=== PATIENT | female | born 1970 | race Caucasian/White ===

== ENCOUNTER → 2017-01-03 | Outpatient (CLI) | payer BC | LOC: BMCIMAGING 13:49 | PROVIDERS: ATTEND Internal Medicine | DX: J45.909 Unspecified asthma, uncomplicated (principal); I51.7 Cardiomegaly ==

== ENCOUNTER → 2017-04-26 | Outpatient (CLI) | payer BC | LOC: BMCIMAGING 13:43 | PROVIDERS: ATTEND Allergy & Immunology Allergy | DX: R05 Cough (principal); J98.59 Other diseases of mediastinum, not elsewhere classified ==

== ENCOUNTER → 2017-04-26 | Outpatient (CLI) | payer BC ==
[~2017-04-26] MED LIST: IOPAMIDOL (ISOVUE 370) 100 ML BTL IV ONE
== END ==
LOC: FIMAGING 17:47
PROVIDERS: ATTEND Nurse Practitioner Family
DX: I28.8 Other diseases of pulmonary vessels (principal); I51.7 Cardiomegaly; R91.8 Other nonspecific abnormal finding of lung field; Z87.09 Personal history of other diseases of the respiratory system
CPT/HCPCS: Q9967

== ENCOUNTER 2017-05-28 08:31 | Day surgery (SDC) | payer BC ==
[2017-05-28] MEDS ORDERED: FAMOTIDINE 20 MG TAB PO ONE (08:43)
[2017-05-28] MEDS ORDERED: TEMAZEPAM 15 MG CAP PO PRN (08:43)
[2017-05-28] MEDS ORDERED: ASPIRIN EC 325 MG TAB PO ONE (08:43)
[2017-05-28] MEDS ORDERED: NS 1,000 ML IV SCH (08:43)
[2017-05-28] MEDS ORDERED: DIAZEPAM 5 MG TAB PO ONE (08:43)
[2017-05-28] MEDS ORDERED: ACETAMINOPHEN 325 MG TAB PO PRN (08:43)
[2017-05-28] MEDS ORDERED: NITROGLYCERIN 0.4 MG BTL SL PRN (08:43)
[2017-05-28] MEDS ORDERED: diphenhydrAMINE 25 MG CAP PO ONE (08:43)
--- NOTE | 2017-05-28 09:08 | CPEKG ---
Heart Rate: 110 RR Interval: 545 P-R Interval: 176 QRSD Interval: 88 QT Interval: 336 QTC Interval: 455 P [place]: 51 QRS [place]: 114 T Wave [place]: -12 EKG Severity - ABNORMAL ECG - EKG Impression: SINUS TACHYCARDIA EKG Impression: ALISON, CONSIDER BIATRIAL ABNORMALITIES EKG Impression: LEFT POSTERIOR FASCICULAR BLOCK EKG Impression: BORDERLINE T ABNORMALITIES, INFERIOR LEADS Electronically Signed By: Ronald Salazar 28-May-2017 09:52:29
[2017-05-28 09:29] LABS: PLATELET COUNT 289 10^3/uL (150-400)
[2017-05-28 09:37] LABS: INR 1.18 (0.83-1.16); PROTIME(PATIENT) 15.2 SEC (12.0-15.0)
[2017-05-28] MEDS ORDERED: IOPAMIDOL (ISOVUE-370) 150 ML BTL IV ONE (10:02)
[2017-05-28] MEDS ORDERED: VERAPAMIL 5 MG/2 ML VIAL ONE (10:02)
[2017-05-28] MEDS ORDERED: HEPARIN 10,000 UNIT/10 ML MDV (1,000 UNIT/ML) ONE (10:02)
[2017-05-28] MEDS ORDERED: MIDAZOLAM 2 MG/2 ML VIAL ONE ×2 (10:02→10:38)
[2017-05-28] MEDS ORDERED: fentaNYL 100 MCG/2 ML INJ ONE ×2 (10:02→10:38)
[2017-05-28] MEDS ORDERED: LIDOCAINE 1% 300 MG/30 ML SDV ONE (10:02)
--- NOTE | 2017-05-28 10:12 | PDPROPOC ---
Sedation Plan of Care Sedation Plan of Care: vital signs stable, mental status noted, patient educated of risks, benefits, alternatives, patient can tolerate sedation ASA Classification: ASA 2 Planned drugs: fentanyl, midazolam Mallampati Score: Class 2 Mallampati Reference Image: Patient passed 3-3-2 rule?: Yes
--- NOTE | 2017-05-28 10:13 | PDHPUP ---
History & Physical Update H&P update statement: This history and physical update is based on an assessment of the patient which was completed after admission or registration (within 24 hours), but prior to the surgery/procedure. H&P update: H&P reviewed & patient examined, no change in patient's condition since H&P completed H&P changes: Will plan for SHONNA to exclude structural anaomaly to explain PA aneursym as well as bubble study to ealuate for shunt.
[2017-05-28] MEDS ORDERED: ADENOSINE 90 MG/30 ML VIAL IV ONE (11:20)
--- NOTE | 2017-05-28 12:04 | PDDXCAT ---
Diagnostic Cath Note - . Date: 05/28/17 Laboratory Apparatus Glass Grinder: Ever Indication: other (Pulmonary hypertension) - Procedure Access: right wrist Procedure: left heart catheterization, left ventriculogram, right heart catheterization - Materials Left Heart Cath size: 5F Left Heart Cath materials: pigtail, other (Siteseer 4\) - Findings-Left Heart Catheterization LM: Normal LAD: Normal LCX: Normal RCA: Normal EDP: 18 mm of mercury LVEF: 60 Wall motion: Normal - Findings-Right Heart Catheterization RA: 18 mm of mercury RV: 84/15 mm of mercury PA: 86/42 with a mean of 59 mm of mercury PAOP: 18 mm of mercury AO: 120/ 79 mm of mercury CO: Baseline 6.78 liters/minute Assessment: Primary pulmonary hypertension Plan: Vaso dilator trial Intervention: Procedure: Vaso dilator trial. Patient was administered 50 micrograms/kilos per minute IV adenosine over 2 minutes intervals with increasing dose to 250 micrograms/kilos per minute. Pulmonary pressure was continuously observed with measurement of cardiac output at baseline and peak hyperemia. New lines baseline pulmonary artery pressure was 86/42 with a mean of 59 mm of mercury. The end of vaso dilator trial there was no change in pulmonary pressure with the final reading of 86/39 with a mean of 57 mm of mercury. There is no change in systemic pressure with the final aortic pressure of 112/63. Cardiac output increased from 6.78 liters/minute to 11.78 liters/minute. Evaluation for intracardiac shunting revealed no significant step-up with a mixed venous oxygen saturation of 78 percent. Conclusions: Primary pulmonary hypertension with no vaso reactive component. No significant [id number] shunt. Patient Problems: Problems Problem Status Onset Pulmonary hypertension Acute
--- NOTE | 2017-05-28 16:50 | ECHO ---
[email or web address] [place] [id number] Main: [phone] Fax: Transesophageal Echocardiography Name: MONIQUE HASSAN MR#: [id number] Study Date: 05/28/2017 Study Time: 10:30 AM Date of : 1970 Age: 47 year(s) Height: ( ) Weight: ( ) BSA: Gender: Female Examination: SHONNA Indication: Pre Cath Image Quality: Contrast: Requested by: Xavier Curtis Heart Rate: Rhythm: BP: / Procedure Staff Production Welder: Jayant Walker RDCS Reading Physician: Xavier Curtis MD Requesting Provider: SHONNA Exam Details Conclusions: Inter atrial bowing of the septum with Doppler suggestion of a patent foramina ovale. Preserved LV systolic function. Dilated right atrium and right ventricle. Decreased RV systolic function Measurements: Chambers Valvular Assessment AV/MV Valvular Assessment TV/PV Normal Normal Normal Name Value Range Name Value Range Name Value Range Additional Measurements: Findings: Left Ventricle: Normal global systolic LV function. Right Ventricle: Moderately dilated right ventricle. Left Atrium: An agitated saline study was performed and was positive for intracardiac shunting. Right Atrium: The right atrium is moderately dilated. l1n Patient: MONIQUE HASSAN Study Date: 05/28/2017 Page 1 of 2 10:30 AM (No Signature Object) Patient: MONIQUE HASSAN Study Date: 05/28/2017 Page 2 of 2 10:30 AM [id number]
== END 2017-05-28 17:00 | disposition home or self-care (01) ==
LOC: FCATH 08:31
PROVIDERS: ATTEND Internal Medicine Interventional Cardiology
PROC: 4A023N8 Measurement of Cardiac Sampling and Pressure, Bilateral, Percutaneous Approach (ICD-10-PCS; principal; 2017-05-28)
PROC: B2151ZZ Fluoroscopy of Left Heart using Low Osmolar Contrast (ICD-10-PCS; principal; 2017-05-28)
PROC: 3E033KZ Introduction of Other Diagnostic Substance into Peripheral Vein, Percutaneous Approach (ICD-10-PCS; principal; 2017-05-28)
DX: I27.20 Pulmonary hypertension, unspecified (principal); I50.9 Heart failure, unspecified; E78.5 Hyperlipidemia, unspecified; I28.1 Aneurysm of pulmonary artery; E66.01 Morbid (severe) obesity due to excess calories; J45.909 Unspecified asthma, uncomplicated; G47.33 Obstructive sleep apnea (adult) (pediatric)
CPT/HCPCS: J0153; J1644; J2250; J3010; Q9967

== ENCOUNTER 2017-06-01 17:39 | Inpatient (IN) | payer BC ==
--- NOTE | 2017-06-01 18:40 | EDPHY ---
HPI/HX/ROS/PE/MDM Narrative: CHIEF COMPLAINT: Right arm pain, occluded right radial artery on ultrasound today HPI: The patient is a 47 y/o female with CHF and pulmonary hypertension who recent underwent a cardiac catheterization for evaluation of intracardiac shunting and subsequently developed right arm pain and swelling. She had an ultrasound of her arm today that showed extensive thrombus of her right radial artery and she was referred to the ED. She denies other symptoms including chest pain, dyspnea, fever. REVIEW OF SYSTEMS: Aside from elements discussed in the HPI, a comprehensive 10-point review of systems was reviewed and is negative. 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 . Employed. Prior medical records reviewed including [facility] progress not 05/14/17, procedure note 05/28/17, and US report 06/01/17. PHYSICAL EXAM: General:Patient is alert, in no acute distress. Obese. ENT:Eyes are normal to inspection. ENT inspection normal. Neck: Normal inspection. Full range of motion. Respiratory:No respiratory distress. Breath sounds normal bilaterally. Cardiovascular: Regular rate and rhythm. Palpable right radial pulse. Normal cap refill. Abdomen:The abdomen is nontender to palpation. There are no peritoneal signs. Back: Normal to inspection. No tenderness to palpation. Skin: Normal color. No rash. Warm and dry. Extremities: Right arm shows mild swelling of radial puncture site and mid- forearm with tenderness. Otherwise normal appearance. Full range of motion. Neuro: Oriented x3. Normal motor function. Normal sensory function. ED Course: This is a 47 y/o female who presents with extensive right radial artery thrombus secondary to cardiac catheterization a few days ago. She has right arm swelling and tenderness with a palpable radial pulse and normal capillary refill on exam. Plan for admission and consult with cardiology. IV established and labs drawn. 1844: Consulted with Dr. Lane, cardiology. He recommends starting on Heparin drip, which I have ordered. Spoke with hospitalist service. Dr. Zaman accepts admission. - Data Points Imaging Results: Imaging Impressions Extremity Venous Study 06/01/17 00:00 Impression: There is a short segment of nonocclusive thrombus involving the cephalic vein in the right antecubital fossa. Otherwise, no evidence of vein thrombosis in the right arm. A preliminary report was called to [facility]. Also, the Emergency Department was notified of the findings. Pseudoaneurysm Repair US 06/01/17 16:00 Impression: Extensive thrombosis of the right radial artery. A report was called to the answering service for [facility]. Instructions were given to send the patient to the emergency Department. The emergency department was notified of the findings. Imaging: Discussed imaging studies w/ call worker Radiologist General Time Seen by Provider: 06/01/17 18:29 Initial Vital Signs: Initial Vital Signs Temperature (C) 36.5 C 06/01/17 17:51 Heart Rate 116 H 06/01/17 17:51 Respiratory Rate 17 06/01/17 17:51 Blood Pressure 152/102 H 06/01/17 17:51 O2 Sat (%) 90 L 06/01/17 17:51 O2 Delivery Mode Nasal Cannula O2 (L/minute) 2 Allergies/Adverse Reactions: hydrocodone Allergy (Intermediate, Verified 05/23/17 14:51) Itching Home Medications: Medication Instructions Recorded Albuterol [Proventil Inhaler HFA 2 puffs IH Q4 PRN 05/23/17 (*)] Albuterol [Proventil Neb] 3 ml IH QID PRN 05/23/17 Aspirin [Aspirin 325 mg (*)] 325 mg PO DAILY 05/23/17 Budesonide/Formoterol 160/4.5 2 puffs IH BID 05/23/17 [Symbicort 160-4.5 Mcg Inh (*)] Rizatriptan Benzoate [Maxalt] 10 mg PO PRN PRN 05/23/17 Spironolactone [Aldactone 25 MG 25 mg PO DAILY 05/23/17 (*)] Torsemide [Demadex] 20 mg PO DAILY@10 05/23/17 Departure - Departure Disposition: [facility] Acute Clinical Impression: Right radial artery thrombus Condition: Fair Report Scribed for: Holland Mcguire Report Scribed by: Elisa Bella Date of Report: 06/01/17 Time of Report: 18:40 Physician Review and Approval Statement: Portions of this note were transcribed by an ED scribe. I personally performed the history, physical exam, and medical decision making; and confirm the accuracy of the information in the transcribed note.
[2017-06-01] MEDS ORDERED: HEPARIN/DEXTROSE 500 ML IV ONE (18:58)
[2017-06-01] MEDS ORDERED: HEPARIN 10,000 UNIT/10 ML MDV (1,000 UNIT/ML) IVP ONE (18:58)
[2017-06-01 19:07] LABS: PLATELET COUNT 360 10^3/uL (150-400)
[2017-06-01 19:48] LABS: INR 1.16 (0.83-1.16)
[2017-06-01] MEDS ORDERED: HEPARIN 10,000 UNIT/10 ML MDV (1,000 UNIT/ML) IVP PRN (21:00)
[2017-06-01] MEDS ORDERED: traZODone 100 MG TAB PO PRN (22:39)
[2017-06-01] MEDS ORDERED: ACETAMINOPHEN 325 MG TAB PO PRN (22:40)
[2017-06-01] MEDS ORDERED: ONDANSETRON 4 MG/2 ML VIAL IVP PRN (22:40)
[2017-06-01] MEDS ORDERED: ONDANSETRON DISINTEGRATING 4 MG TAB PO PRN (22:40)
--- NOTE | 2017-06-02 00:25 | PDGENHP ---
History and Physical - Chief Complaint R arm pain - History of Present Illness 47 yo F w/ obesity, pHTN, and asthma presents with R wrist pain. Patient had L/ R cardiac cath 05/28/17 for evaluation of ongoing dyspnea and newly diagnosed pulmonary hypertension. Since the procedure she has developed R wrist and forearm pain. US performed today after cardiology visit demonstrated extensive R radial thrombosis. She was sent to ED for evaluation where cardiology recommended heparin gtt for therapy. She is doing well at the time of my evaluation only complaining of mild R forearm pain. History Information - Allergies/Home Medication List Allergies/Adverse Reactions: hydrocodone Allergy (Intermediate, Verified 05/23/17 14:51) Itching Home Medications: Albuterol [Proventil Inhaler HFA (*)] 2 puffs IH Q4 PRN 05/23/17 [Last Taken 15:00] Albuterol [Proventil Neb] 3 ml IH QID PRN 05/23/17 [Last Taken 05/20/17] Aspirin [Aspirin 325 mg (*)] 325 mg PO DAILY 05/23/17 [Last Taken 05/27/17 08:00 ] Budesonide/Formoterol 160/4.5 [Symbicort 160-4.5 Mcg Inh (*)] 2 puffs IH BID [Last Taken 06/01/17 08:00] Rizatriptan Benzoate [Maxalt] 10 mg PO PRN PRN 05/23/17 [Last Taken Unknown] Spironolactone [Aldactone 25 MG (*)] 25 mg PO DAILY 05/23/17 [Last Taken ] Torsemide [Demadex] 20 mg PO DAILY@10 05/23/17 [Last Taken 06/01/17] I have personally reviewed and updated: family history, medical history - Past Medical History Additional medical history: Pulmonary hypertension. Obesity. Migraines. Asthma. Protein C deficiency - Family History Additional family history: Patient is adopted but does know of Protein C def. that runs in the family - Social History Smoking Status: Never smoked Review of Systems Review of Systems: ROS: 10pt was reviewed & negative except for what was stated in HPI & below Physical Exam Physical Exam: Temp Pulse Resp BP Pulse Ox 36.8 C 111 H 18 138/90 H 95 06/01/17 23:50 06/01/17 23:50 06/01/17 23:50 06/01/17 23:50 06/01/17 23:50 O2 (L/minute) 2 Constitutional: no apparent distress, obese Eyes: PERRL, EOMI Ears, Nose, Mouth, Throat: moist mucous membranes, no oral mucosal ulcers Cardiovascular: regular rate and rhythym, systolic murmur, other (R radial pulse weak but palpable, normal capillary refill) Respiratory: no respiratory distress, clear to auscultation Gastrointestinal: normoactive bowel sounds, soft, non-tender abdomen Skin: warm, normal color Musculoskeletal: full muscle strength, no muscle tenderness Neurologic: AAOx3, CN II-XII Intact Psychiatric: interacting appropriately, not anxious Lab Data & Imaging Review 06/01/17 18:45 06/01/17 18:45 WBC 14.46 10^3/uL (3.80-9.50) H 06/01/17 18:45 RBC 5.34 10^6/uL (4.18-5.33) H 06/01/17 18:45 Hgb 16.0 g/dL (12.6-16.3) 06/01/17 18:45 Hct 48.1 % (38.0-47.0) H 06/01/17 18:45 MCV 90.1 fL (81.5-99.8) 06/01/17 18:45 MCH 30.0 pg (27.9-34.1) 06/01/17 18:45 MCHC 33.3 g/dL (32.4-36.7) 06/01/17 18:45 RDW 14.2 % (11.5-15.2) 06/01/17 18:45 Plt Count 360 10^3/uL (150-400) 06/01/17 18:45 MPV 9.8 fL (8.7-11.7) 06/01/17 18:45 Neut % (Auto) 73.4 % (39.3-74.2) 06/01/17 18:45 Lymph % (Auto) 18.9 % (15.0-45.0) 06/01/17 18:45 Gilliam % (Auto) 5.5 % (4.5-13.0) 06/01/17 18:45 Eos % (Auto) 1.2 % (0.6-7.6) 06/01/17 18:45 Baso % (Auto) 0.4 % (0.3-1.7) 06/01/17 18:45 Nucleat RBC Rel Count 0.0 % (0.0-0.2) 06/01/17 18:45 Absolute Neuts (auto) 10.62 10^3/uL (1.70-6.50) H 06/01/17 18:45 Absolute Lymphs (auto) 2.73 10^3/uL (1.00-3.00) 06/01/17 18:45 Absolute Monos (auto) 0.80 10^3/uL (0.30-0.80) 06/01/17 18:45 Absolute Eos (auto) 0.17 10^3/uL (0.03-0.40) 06/01/17 18:45 Absolute Basos (auto) 0.06 10^3/uL (0.02-0.10) 06/01/17 18:45 Absolute Nucleated RBC 0.00 10^3/uL (0-0.01) 06/01/17 18:45 Immature Gran % 0.6 % (0.0-1.1) 06/01/17 18:45 Immature Gran # 0.08 10^3/uL (0.00-0.10) 06/01/17 18:45 PT 15.0 SEC (12.0-15.0) 06/01/17 18:45 INR 1.16 (0.83-1.16) 06/01/17 18:45 APTT 28.8 SEC (23.0-38.0) 06/01/17 18:45 Sodium 143 mEq/L (135-145) 06/01/17 18:45 Potassium 4.0 mEq/L (3.5-5.2) 06/01/17 18:45 Chloride 106 mEq/L (97-110) 06/01/17 18:45 Carbon Dioxide 25 mEq/l (22-31) 06/01/17 18:45 Anion Gap 12 mEq/L (8-16) 06/01/17 18:45 BUN 12 mg/dL (7-23) 06/01/17 18:45 Creatinine 0.9 mg/dL (0.6-1.0) 06/01/17 18:45 Estimated GFR > 60 06/01/17 18:45 Glucose 100 mg/dL (70-100) 06/01/17 18:45 Calcium 9.8 mg/dL (8.5-10.4) 06/01/17 18:45 Imaging Review: Imaging Impressions Extremity Venous Study 06/01/17 00:00 Impression: There is a short segment of nonocclusive thrombus involving the cephalic vein in the right antecubital fossa. Otherwise, no evidence of vein thrombosis in the right arm. A preliminary report was called to [facility]. Also, the Emergency Department was notified of the findings. Pseudoaneurysm Repair US 06/01/17 16:00 Impression: Extensive thrombosis of the right radial artery. A report was called to the answering service for [facility]. Instructions were given to send the patient to the emergency Department. The emergency department was notified of the findings. Assessment & Plan Assessment: 47 yo F w/ obesity, pHTN, asthma, and protein C def presents w/ R radial thrombosis after cath of 05/28/17. Plan: 1. R radial thrombosis - I suspect this is iatrogenic from recent heart cath on 05/28/17. She does have Protein C def., which may be contributing, but it is unusual for this to lead to arterial thrombosis. - Cardiology consulted, will continue heparin gtt per their recommendation 2. pHTN - With aneurysmal PA of 4.6 cm. This is most likely Class III noting obesity, ANSHU/OHS, and asthma with normal coronaries and no significant valvular disease on recent studies. R hear orozco revealed RA 18, PA 86/42 (59), PCWP 18, and CO 6.8 L/min with no stop on sampling of R heart O2 sats. - Continue spironolactone and torsemide 3. Asthma - On Symbicort and albuterol PRN as outpatient, no e/o acute exacerbation. 4. Morbid obesity - Complicated by ANSHU/OHS, BMI 54. 5. Migraines - Triptan PRN, would avoid for now in setting of arterial complications. 6. Protein C def - Has no prior history of VTE; not on anticoagulation chronically. Diet - Regular Code - Full Ppx - Heparin gtt Dispo - Admit to PCU under observation status
[2017-06-02 04:40] LABS: PLATELET COUNT 301 10^3/uL (150-400)
[2017-06-02] MEDS: HEPARIN/DEXTROSE 500 ML IV SCH ×2 (08:16→23:13)
--- NOTE | 2017-06-02 09:15 | HOSPPROG ---
Hospitalist Progress Note Assessment/Plan: * Radial artery thrombosis - iatrogenic from heart cath 05/28 -IV heparin gtt -d/w Dr. Shelby - vascular surgery and IR consult - will d/w Ross and Juarez * Protein C deficiency - no chronic anticoagulation as no previous clot -hypercoagulable state - consider lifelong anticoag, josi given arterial thrombosis -f/u hematology as outpatient * Pulm HTN -likely due to obesity/ANSHU -has sleep study scheduled outpatient this -continue torsemide, spironolactone * Morbid obesity BMI 54 * Asthma -Symbicort Subjective: Arm about the same, was blue yesterday, now denies weakness or numbness Objective: Vital Signs Temp Pulse Resp BP Pulse Ox 36.3 C 105 H 16 143/95 H 94 06/02/17 08:00 06/02/17 08:00 06/02/17 08:00 06/02/17 08:00 06/02/17 08:00 Laboratory Results 06/02/17 03:50 06/02/17 03:50 06/01/17 06/02/17 06/03/17 05:59 05:59 05:59 Intake Total 300 Output Total 250 Balance 300 -250 PT 15.0 SEC (12.0-15.0) 06/01/17 18:45 INR 1.16 (0.83-1.16) 06/01/17 18:45 US - clot from breast down to mid arm - Physical Exam Constitutional: no apparent distress, appears nourished, not in pain Cardiovascular: regular rate and rhythym, no murmur, rub, or gallop Respiratory: no respiratory distress, no rales or rhonchi, clear to auscultation Gastrointestinal: normoactive bowel sounds, soft, non-tender abdomen, no palpable masses Skin: erythema, induration, other (RUE tender, small patch of erythema over artery, doppler weak pulse, good perfusion and strength) Musculoskeletal: full muscle strength, muscular tenderness, No joint effusion, No joint tenderness Neurologic: AAOx3, sensation intact bilaterally Psychiatric: interacting appropriately, not anxious, not encephalopathic, thought process linear ICD10 Worksheet Patient Problems: Problems Problem Status Onset Right radial artery thrombus Acute Pulmonary hypertension Acute
[2017-06-02] MEDS ORDERED: ALBUTEROL 3 ML DEYVIAL IH PRN (09:16)
[2017-06-02] MEDS ORDERED: NS 1,000 ML IV SCH (09:30)
--- NOTE | 2017-06-02 09:34 | SOAPPROG ---
[facility] Progress Note Assessment/Plan: Assessment:1.right radial clot..probably secondary to cath ...pt feeling ok..will have consults with IR and vascular surgery to further delineate therapeutic options. pt in agreement with plans Plan:1. as ordered 06/02/17 09:39 Subjective: pt is doing better this AM. no sob or cp. pt hand is strong without pain and palpable radial pulse. pt has extensive clot in right arm arterial supply. d/w dr jackson and will request IR consult. Objective: Vital Signs Temp Pulse Resp BP Pulse Ox 36.3 C 105 H 16 143/95 H 94 06/02/17 08:00 06/02/17 08:00 06/02/17 08:00 06/02/17 08:00 06/02/17 08:00 Laboratory Results 06/02/17 03:50 06/02/17 03:50 06/01/17 06/02/17 06/03/17 05:59 05:59 05:59 Intake Total 300 Output Total 250 Balance 300 -250 PT 15.0 SEC (12.0-15.0) 06/01/17 18:45 INR 1.16 (0.83-1.16) 06/01/17 18:45 Physical Exam - Physical Exam Respiratory: lungs clear Cardiac/Chest: regular rate, rhythm, No JVD (no palpable right radial pulse ) ICD10 Worksheet Patient Problems: Problems Problem Status Onset Right radial artery thrombus Acute Pulmonary hypertension Acute
[2017-06-02] MEDS ORDERED: IOPAMIDOL (ISOVUE 370) 100 ML BTL IV ONE (09:49)
--- NOTE | 2017-06-02 10:06 | PDCONSULT ---
Blood Tester Fowl Note: 47 y/o female s/p cardiac cath on Sunday05/28/17 (right radial approach). She had some feelings of tightness in the right forearm starting Sunday and went to work Sunday. The pain became worse and she came in for assessment on Thursday 06/01. An ultrasound of the right upper extremity revealed clot in the radial artery. She was admitted to [facility] and started on Heparin. Surgical consult was requested this morning by Dr. Grace. PMH: Protein C deficiency Pulmonary HTN all: hydrocodone non-smoker PE: T 36.3 P 105 R 16 O2sat 94% 2lpm Pleasant somwhat overweight female in NAD/just finished breakfast RUE: radial pulse absent ulnar pulse +2 right hand is warm with good capillary refill forearm is tender, she is tender over the ACF with a palpable brachial pulse Imp: subacute right radial artery occlusion/clinically patent brachial + ulnar artery/no evidence of limb threat s/p cardiac cath via right radial artery approach protein C deficiency without prior vascular occlusive events Rec: CTA ext/IR consult for possible thrombolytic infusion Addendum: CTA reviewed with Dr. Byrne and discussed with Dr. Pizarro. CTA confirms clinical findings. Brachial and ulnar arteries are patent. radial artery is occleded at the level of the bifurcation of the brachial artery near the elbow. The etiology of the thrombosis is most likely mechanical/dissection with prograde thrombosis to the bifurcation. The chance of restoring flow to the radial artery with IR or surgical thrombectomy is low. Dr. Pizarro did not recommend thrombolytic therapy and I did not recommend catheter thrombectomy. I discussed with Dr. Frank Smalls and he recommended therapeutic Heparin and Coumadin in a patient with Protein C deficiency. The findings and recommendations were discussed with the patient. Laura Hawkins MD, FACS
--- NOTE | 2017-06-02 10:21 | PDMN ---
Medical Necessity Medical necessity: C/M review: Patient meets INPT criteria under [facility] Vascular disease GRG (Embolism and thrombosis of the upper extremities): Acute and persistent right radial artery extensive thrombosis seen on US 06/01/2017 ( iatrogenic from heart catheterization 05/28/2017) requiring planned IR consult, Vascular surgery consult, ongoing IV Heparin infusion, cardiac monitoring, comorbid protein C deficiency, hypercoaguable state, pulmonary hypertension, morbid obesity - BMI 54, obstructive sleep apnea, asthma. MD anticipates > 2 MN LOS for ongoing med nec for eval and TX of above.
[2017-06-02] MEDS: TORSEMIDE 20 MG TAB PO SCH (12:03)
[2017-06-02] MEDS: HYDROmorphONE/DILAUDID 2 MG/ML INJ IVP PRN ×2 (12:04→17:50)
[2017-06-02] MEDS ORDERED: SPIRONOLACTONE 25 MG TAB ONE (12:08)
--- NOTE | 2017-06-02 14:40 | ASMTCMCOM ---
CM Note CM Note Notes: Pt has been admitted with a radial artery clot 05/04 a heart cath done on 05/28. She is currently on heparin and no surgery is planned. She has a hx of pulmonary HTN and asthma. She has a son Dimitrios. Anticipate pt will d/c with no CM needs but will continue to follow for any change in d/c needs. Date Signed: 06/02/2017 02:40 PM Electronically Signed By:CARO Nayak
[2017-06-02] MEDS: WARFARIN SODIUM 5 MG TAB PO SCH (15:46)
[2017-06-02] MEDS ORDERED: ADENOSINE 6 MG/2 ML VIAL ONE (19:08)
[2017-06-02] MEDS: BUDESONIDE/FORMOTEROL 160/4.5 60 PUFFS/MDI IH SCH (21:18)
[2017-06-03] MEDS: HYDROmorphONE/DILAUDID 2 MG/ML INJ IVP PRN ×2 (02:22→08:24)
[2017-06-03 04:46] LABS: PLATELET COUNT 277 10^3/uL (150-400)
[2017-06-03 05:24] LABS: INR 1.19 (0.83-1.16); PROTIME(PATIENT) 15.3 SEC (12.0-15.0)
[2017-06-03 07:08] LABS: CREATINE KINASE 34 IU/L (0-156)
[2017-06-03] MEDS ORDERED: PROTOCOL POTASSIUM 1 DOSE MISC PRN (09:30)
[2017-06-03] MEDS ORDERED: traMADol 50 MG TAB PO PRN (09:39)
--- NOTE | 2017-06-03 09:44 | HOSPPROG ---
Hospitalist Progress Note Assessment/Plan: * Radial artery thrombosis - iatrogenic from heart cath 05/28 -brachial and ulnar arteries patent, good perfusion of hand -IV heparin gtt - change to SubQ Lovenox -no intervention with surgery or IR indicated -start warfarin - goal INR 2-3 * Protein C deficiency - no chronic anticoagulation as no previous clot -hypercoagulable state - consider lifelong anticoag, josi given arterial thrombosis -f/u hematology as outpatient * Pulm HTN -likely due to obesity/ANSHU -has sleep study scheduled outpatient this -continue torsemide, spironolactone * Morbid obesity BMI 54 * Asthma -Symbicort Subjective: Arm pain better, moved to upper arm. Objective: Vital Signs Temp Pulse Resp BP Pulse Ox 36.9 C 99 19 156/103 H 90 L 06/03/17 07:17 06/03/17 07:17 06/03/17 07:17 06/03/17 07:17 06/03/17 07:17 Laboratory Results 06/03/17 04:26 06/03/17 04:26 06/02/17 06/03/17 06/04/17 05:59 05:59 05:59 Intake Total 1750 Output Total 1400 Balance 350 PT 15.3 SEC (12.0-15.0) H 06/03/17 04:26 INR 1.19 (0.83-1.16) H 06/03/17 04:26 case d/w Dr. Pizarro - no benefit from intervention in IR CTA arm - radial artery thrombosed, other arteries patent Using IV dilaudid for pain - Physical Exam Constitutional: no apparent distress, appears nourished, not in pain Cardiovascular: regular rate and rhythym, no murmur, rub, or gallop Respiratory: no respiratory distress, no rales or rhonchi, clear to auscultation Gastrointestinal: normoactive bowel sounds, soft, non-tender abdomen, no palpable masses Skin: no rashes or abrasions, no fluctuance, no induration Neurologic: AAOx3, sensation intact bilaterally Psychiatric: interacting appropriately, not anxious, not encephalopathic, thought process linear ICD10 Worksheet Patient Problems: Problems Problem Status Onset Right radial artery thrombus Acute Pulmonary hypertension Acute
--- NOTE | 2017-06-03 10:18 | SOAPPROG ---
SOAP Progress Note Assessment/Plan: Assessment:1.right radial clot..probably secondary to cath ...pt feeling better...pt doing well on current therapy and treatment as ordered Plan:1. as ordered 06/02/17 09:39 06/03/17 10:17 Subjective: no cv c/o ..right hand feels better..discussed findings on tests Objective: Vital Signs Temp Pulse Resp BP Pulse Ox 36.9 C 99 19 156/103 H 90 L 06/03/17 07:17 06/03/17 07:17 06/03/17 07:17 06/03/17 07:17 06/03/17 07:17 Laboratory Results 06/03/17 04:26 06/03/17 04:26 06/02/17 06/03/17 06/04/17 05:59 05:59 05:59 Intake Total 1750 Output Total 1400 Balance 350 PT 15.3 SEC (12.0-15.0) H 06/03/17 04:26 INR 1.19 (0.83-1.16) H 06/03/17 04:26 Physical Exam - Physical Exam Cardiac/Chest: regular rate, rhythm (right ahnd ..no radial pulse..? ulnar pulse palp noted) ICD10 Worksheet Patient Problems: Problems Problem Status Onset Right radial artery thrombus Acute Pulmonary hypertension Acute
[2017-06-03] MEDS: SPIRONOLACTONE 25 MG TAB PO SCH (10:22)
[2017-06-03] MEDS: BUDESONIDE/FORMOTEROL 160/4.5 60 PUFFS/MDI IH SCH ×2 (10:22→19:59)
[2017-06-03] MEDS: TORSEMIDE 20 MG TAB PO SCH (10:22)
[2017-06-03] MEDS: ENOXAPARIN 150 MG/ML SYR SC SCH ×2 (12:18→20:30)
[2017-06-03] MEDS: KETOROLAC 30 MG/1 ML SDV IVP PRN ×2 (12:19→19:10)
--- NOTE | 2017-06-03 14:34 | ASMTCMCOM ---
CM Note CM Note Notes: [facility] contacted about need for Lovenox inj 2x/day. [facility] does contract w/[employer] they could go out 2x/day for a limited time (3days) but patient wouldn't get the inj 12 hrs apart. Maybe 9am and again at 6pm? Date Signed: 06/03/2017 02:34 PM Electronically Signed By:Milka Friend LCSW
[2017-06-03] MEDS: WARFARIN SODIUM 5 MG TAB PO SCH (16:18)
[2017-06-03] MEDS ORDERED: POTASSIUM CL 10 MEQ TAB PO ONE (16:22)
[2017-06-03] MEDS ORDERED: POTASSIUM CL 10 MEQ TAB ONE (16:26)
[2017-06-04] MEDS: KETOROLAC 30 MG/1 ML SDV IVP PRN ×3 (01:11→19:52)
[2017-06-04 04:54] LABS: PLATELET COUNT 277 10^3/uL (150-400)
[2017-06-04 05:04] LABS: INR 1.22 (0.83-1.16); PROTIME(PATIENT) 15.6 SEC (12.0-15.0)
[2017-06-04] MEDS: BUDESONIDE/FORMOTEROL 160/4.5 60 PUFFS/MDI IH SCH ×2 (08:00→20:06)
--- NOTE | 2017-06-04 09:09 | CPEKG ---
Heart Rate: 96 RR Interval: 625 P-R Interval: 180 QRSD Interval: 96 QT Interval: 360 QTC Interval: 455 P [place]: 54 QRS [place]: 108 T Wave [place]: -41 EKG Severity - ABNORMAL ECG - EKG Impression: SINUS RHYTHM EKG Impression: ALISON, CONSIDER BIATRIAL ABNORMALITIES EKG Impression: PROBABLE RIGHT VENTRICULAR HYPERTROPHY EKG Impression: NONSPECIFIC T ABNORMALITIES, INFERIOR LEADS EKG Impression: RIGHT AXIS DEVIATION Electronically Signed By: Ronald Lane 04-Jun-2017 10:28:27
[2017-06-04] MEDS: SPIRONOLACTONE 25 MG TAB PO SCH (09:44)
[2017-06-04] MEDS: ENOXAPARIN 150 MG/ML SYR SC SCH ×2 (09:45→21:19)
--- NOTE | 2017-06-04 10:34 | PDCARPN ---
Cardiology Progress Note Assessment/Plan: Assessment: 1. Right radial clot..2/2 to cath ...Right arm feels better, with no pain. R ulnar/radial pulses equal. Good capillary refill of fingers. Hand warm. 2. SOB that was first noted the end of October and has progressively worsened to point now unable to walk across room w/out near gasping for breath. Today her HR is elevated in low 100's, EKG shows possible Right ventricular hypertrophy. Reported elevated Plan:R/o PE 06/04/17 10:25 06/04/17 22:49 Subjective: I get SOB with activity Reviewed/Discussed With: hospitalist, multidisciplinary team Objective: Vital Signs (8 Hrs) Temp Pulse Resp BP Pulse Ox 06/04/17 04:00 36.6 C 110 H 16 131/86 H 91 L Intake/Output (24 Hrs) 06/03/17 06/04/17 06/05/17 05:59 05:59 05:59 Intake Total 1750 200 260 Output Total 1400 800 Balance 350 -600 260 Intake: Oral (ml) 1750 200 260 Output: Urine (ml) 1400 800 Toilet 1400 800 Other: Weight 138.2 kg Intake Quantity Yes Yes Sufficient Number of Voids Toilet 1 Result Diagrams: 06/04/17 04:06 06/04/17 18:14 - Physical Exam Constitutional: no apparent distress, obese Cardiovascular: regular rate and rhythm, no murmurs Peripheral Pulses: 2+: carotid (R), carotid (L), dorsalis-pedis (R), dorsalis- pedis (L) Respiratory: clear to auscultate bilat, no crackles, no wheezes Gastrointestinal: no tenderness Skin: no rashes, warm, other (Left arm edema) Neurologic: AAOx3 Psychiatric: cooperative, interactive ICD10 Worksheet Patient Problems: Problems Problem Status Onset Right radial artery thrombus Acute Pulmonary hypertension Acute
[2017-06-04] MEDS ORDERED: IOPAMIDOL (ISOVUE 370) 100 ML BTL IV ONE (10:49)
[2017-06-04] MEDS: TORSEMIDE 20 MG TAB PO SCH (12:52)
--- NOTE | 2017-06-04 14:14 | HOSPPROG ---
Hospitalist Progress Note Assessment/Plan: * Radial artery thrombosis - iatrogenic from heart cath 05/28 -brachial and ulnar arteries patent, good perfusion of hand -SubQ Lovenox -no intervention with surgery or IR indicated -start warfarin - goal INR 2-3 * Protein C deficiency - no chronic anticoagulation as no previous clot -hypercoagulable state - consider lifelong anticoag, josi given arterial thrombosis -f/u hematology as outpatient * Pulm HTN -likely due to obesity hypoventilation/ANSHU -has sleep study scheduled outpatient this -continue torsemide, spironolactone -consult pulmonary - d/w Dr. Ivey * Morbid obesity BMI 54 * Asthma -Symbicort Subjective: No complaints. Objective: Vital Signs Temp Pulse Resp BP Pulse Ox 36.6 C 107 H 14 133/86 H 93 06/04/17 12:00 06/04/17 12:00 06/04/17 12:00 06/04/17 12:00 06/04/17 12:00 Laboratory Results 06/04/17 04:06 06/04/17 04:06 06/03/17 06/04/17 06/05/17 05:59 05:59 05:59 Intake Total 1750 200 260 Output Total 1400 800 Balance 350 -600 260 PT 15.6 SEC (12.0-15.0) H 06/04/17 04:06 INR 1.22 (0.83-1.16) H 06/04/17 04:06 CTA chest - no PE tele - sinus tachy - Physical Exam Constitutional: no apparent distress, appears nourished, not in pain Cardiovascular: regular rate and rhythym, no murmur, rub, or gallop Respiratory: no respiratory distress, no rales or rhonchi, clear to auscultation Gastrointestinal: normoactive bowel sounds, soft, non-tender abdomen, no palpable masses Skin: no rashes or abrasions, no fluctuance, no induration Neurologic: AAOx3, sensation intact bilaterally Psychiatric: interacting appropriately, not anxious, not encephalopathic, thought process linear ICD10 Worksheet Patient Problems: Problems Problem Status Onset Right radial artery thrombus Acute Pulmonary hypertension Acute
--- NOTE | 2017-06-04 14:34 | ASMTCMCOM ---
CM Note CM Note Notes: Clarification w/[facility] if needed; spoke w/Jennifer today who said that they could do SQ Lovenox q12 hrs if needed (they would do 8AM and 8PM). Met w/pt and friend, Jv, who is here from out of state visiting and helping pt until Sunday. She is comfortable learning how to give SQ injections and may be difficult for pt to be homebound as they will be looking for new apt b/c her current apt is 2nd floor w/no elevator and is very difficult to manage at this time w/her current cardiopulmonary issues. They will let us know if they decide to have some initial at home teaching w/BC but at this time do not feel they will need it. Interested in shower seat; [employer] and [employer] supply co list given. CM will follow. Date Signed: 06/04/2017 02:34 PM Electronically Signed By:Moraima Ibrahim RN
--- NOTE | 2017-06-04 15:51 | ECHO ---
[email or web address] [address] [address] Main: [phone] Fax: Transthoracic Echocardiogram Name: MONIQUE HASSAN MR#: [id number] Study Date: 06/04/2017 Study Time: 12:16 PM Date of : 1970 Age: 47 year(s) Height: 160 cm (63 in.) Weight: 137.89 kg (304 lb.) BSA: 2.31 m2 Gender: Female Examination: Limited Echo Indication: Known elevated pulm pressures/SOB Image Quality: Contrast: Requested by: Janis Vargas BP: 112 mmHg/86 mmHg Heart Rate: Rhythm: Indication: Known elevated pulm pressures/SOB Procedure Staff Midlevel Provider: Maria T Macias [facility] Reading Physician: Ronald Salazar MD Requesting Provider: Conclusions: Global hypercontractility of the left ventricle. The ejection fraction is estimated to be 70-75 %. Flattened interventricular septum consistent with right ventricular pressure and/or volume overload septum. Moderate tricuspid regurgitation is present. RVSP is 90-100mmHG.. Measurements: Chambers Valvular Assessment AV/MV Valvular Assessment TV/PV Normal Normal Normal Name Value Range Name Value Range Name Value Range LVDd (2D): 4.0 cm (3.9 cm-5.3 TR Vmax: 4.46 mm/s ( - ) cm) TR PGmax: 80 mmHg ( - ) EF Range: 70-75 % syst. PAP: 90 mmHg ( - ) Continued Measurements: Valvular Assessment TV/PV Name Value CVP (est.): 10 mmHg Findings: Left Ventricle: Global hypercontractility of the left ventricle. The ejection fraction is estimated to be 70-75 %. Right Ventricle: Flattened interventricular septum consistent with right ventricular pressure and/or volume overload septum. Tricuspid Valve: Patient: MONIUQE AHSSAN Study Date: 06/04/2017 Page 1 of 2 12:16 PM Moderate tricuspid regurgitation is present. RVSP is 90-100mmHG.. (No Signature Object) Patient: MONIQUE HASSAN Study Date: 06/04/2017 Page 2 of 2 12:16 PM [id number]
[2017-06-04] MEDS ORDERED: WARFARIN SODIUM 5 MG TAB PO ONE (16:00)
--- NOTE | 2017-06-04 19:31 | GCON ---
[f rep st] CONSULTATION PULMONARY CONSULTATION DATE OF CONSULTATION: 06/04/2017 REASON FOR CONSULTATION: Pulmonary hypertension. HISTORY: The patient is a very pleasant 47-year-old, who was admitted on 06/02 with right arm pain. She was found to have a radial artery clot. The ulnar artery was intact. This followed a right rad ial catheterization on 05/28 for a right heart catheterization. Pulmonary artery pressures were foun d to be 86. There was no response to vasodilators. She previously had a cardiac echo, which deb rated similarly elevated estimated pulmonary artery pressures and a patent foramen ovale by miguel urias. Clinically, the patient has morbid obesity. She weighs 138 kg, with a BMI of approximately 54. She has been overweight for many years. She was on Fen-Phen about 20 years ago for 6 months. No cardiac echoes were done at that time as she recalls. She has not been on oxygen until recently. She is be ing evaluated for obstructive sleep apnea and has an outpatient sleep study scheduled in 3 days. She has been increasingly dyspneic over the last several months. She has had increasing fluid retention over this time. She lives alone in her own apartment on the 2nd floor. Lately, she has had to stop 3 times going up the stairs. There is no elevator. She has had a cough going back over the last 3 months or so. She does not bring up any mucus, and the cough has been better over the last several w eeks. There is a questionable history of asthma. She is on Symbicort and albuterol. She is a never smoker. She has had a dry cough over a number of months. This has been better over the last week. She was recently started on Aldactone and torsemide. She remains on these without change during thi s hospitalization. She is feeling better. She has obviously not been doing much since she has been in the hospital; however, with oxygen in place, and with ongoing diuretic therapy, she believes that her dyspnea on exertion has significantly improved. She did walk a few stairs yesterday on room air and dropped to 82%, by report. CT angiogram recently showed no evidence of pulmonary embolic disease . She is being anticoagulated, however, secondary to her right radial thrombosis. PAST MEDICAL HISTORY: Remarkable for morbid obesity, protein-C deficiency, a history of possible ast hma, migraines, and pulmonary hypertension. She is being evaluated for sleep apnea. SOCIAL HISTORY: The patient lives alone on the 2nd floor in an apartment. 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 She is a never smoker. Significant alcohol is negative. FAMILY HISTORY: Adopted. Apparently, protein-C deficiency runs in her biologic family. REVIEW OF SYSTEMS: A 10-point review of systems is negative, except as noted above. ALLERGIES: Hydrocodone. PHYSICAL EXAMINATION: GENERAL: Reveals a very pleasant woman who is significantly obese. VITAL SIG NS: Oxygen is in place at 2 L. Saturations are 94%. Blood pressure is 120/75, heart rate 100 and r egular, with sinus rhythm noted. She is afebrile. Respiratory rate is approximately 16. She is afe brile. HEENT: Unremarkable for lymphadenopathy or thyromegaly. Oropharyngeal tissues and tongue ar e generally enlarged. The posterior oropharynx, however, can be seen. Some tonsillar remnants persi st. There is mild nasal congestion, without obvious postnasal drainage. NECK: She has a large neck . Jugular venous pressure cannot be estimated. CHEST: Clear bilaterally. Excursions are decent. Breath sounds are diminished secondary to body habitus. HEART: Tones are quite distant. P2 is incr eased. Gallops are difficult to appreciate. ABDOMEN: Quite obese. Organomegaly cannot be apprecia susan. Bowel sounds are distant but present. There is no obvious tenderness. EXTREMITIES: Remarkabl e for at least trace plus edema. NEUROLOGIC: Examination is intact. LABORATORY DATA: White blood cell count is 9800, hematocrit 44. Platelets are normal. PT and PTT o n admission were within normal limits. Chemistries are within normal limits. Thyroid is normal. ASSESSMENT: 1. Severe pulmonary hypertension, with pulmonary artery pressures documented directly to be 85. Thi s is likely secondary to obesity, hypoventilation, chronic hypoxemia and sleep apnea. I would not be surprised if oxygen saturations are markedly low at night. A sleep study is scheduled and will be d one, if possible, in 3 days. Her pulmonary hypertension is associated with a patent foramen ovale. This is likely patent secondary to these high pressures. 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 2. Hypoxemia. Please see the comments above. 3. Probable obstructive sleep apnea. Please see the comments above. 4. Morbid obesity. Weight loss would certainly be indicated. Bariatric surgery in the future could be considered. This likely has been addressed with the patient at some point in the past. I did no t discuss this with her. 5. Protein C deficiency. 6. Right arterial thrombosis, in part secondary to recent right atrial catheterization. PLAN/RECOMMENDATIONS: The patient should be kept on oxygen. Anticoagulation is indicated. She is b eing transitioned to Coumadin from b.i.d. enoxaparin. Diuretics should be continued. Her sleep stud y hopefully can be done this as an outpatient. I anticipate she will be able to be discharg ed from the hospital tomorrow or Sunday. I would get a resting arterial blood gas on her on room air. However, this would require a left radial stick. In light of her current clot in her right rad ial artery, I will not request an arterial blood gas at this point in time. None was done that I can find at the time of her left and right heart catheterization. I would like to see her ambulated on oxygen, including stairs prior to her discharge home. It would be reasonable to help her secure an a partment on the ground floor in the near future. Her apartment managers are being somewhat resistant to this without financial penalty. Contacting the managers or the apartment complex owners may be o f benefit in this regard. She does have an appointment with Jama Fishman MD, in our office, I believe on June 11. He will provi de ongoing followup. Drugs for pulmonary hypertension can be considered on followup, although this p roblem is likely chronic and secondary to the factors as outlined above. All of the above was discussed with the patient and her friend. /[id number]/MODL
[2017-06-05 05:33] LABS: INR 1.28 (0.83-1.16); PROTIME(PATIENT) 16.2 SEC (12.0-15.0)
[2017-06-05] MEDS: oxyCODONE IR 5 MG TAB PO PRN ×2 (08:06→09:35)
[2017-06-05] MEDS: SPIRONOLACTONE 25 MG TAB PO SCH (08:07)
[2017-06-05] MEDS: ENOXAPARIN 150 MG/ML SYR SC SCH (08:07)
[2017-06-05] MEDS: BUDESONIDE/FORMOTEROL 160/4.5 60 PUFFS/MDI IH SCH (09:05)
[2017-06-05] MEDS: TORSEMIDE 20 MG TAB PO SCH (09:33)
[2017-06-05 09:56] VITALS: BP 109/73; RESP 14; TEMP 98.5
--- NOTE | 2017-06-05 09:57 | PDIAF ---
- Diagnosis Diagnosis: severe pulmonary HTN Code Status: Full Code - Medication Management Discharge Medications: Medications to Continue on Transfer Albuterol [Proventil Inhaler HFA (*)] 2 puffs IH Q4 PRN 05/23/17 [Last Taken 15:00] Albuterol [Proventil Neb] 3 ml IH QID PRN 05/23/17 [Last Taken 05/20/17] Budesonide/Formoterol 160/4.5 [Symbicort 160-4.5 Mcg Inh (*)] 2 puffs IH BID [Last Taken 06/01/17 08:00] Rizatriptan Benzoate [Maxalt] 10 mg PO PRN PRN 05/23/17 [Last Taken Unknown] Spironolactone [Aldactone 25 MG (*)] 25 mg PO DAILY 05/23/17 [Last Taken ] Torsemide [Demadex] 20 mg PO DAILY@10 05/23/17 [Last Taken 06/01/17] Enoxaparin [Lovenox 150 MG (*)] 140 mg SC BID #6 syr 06/05/17 [Last Taken Unknown] Warfarin Sodium 5 mg PO DAILY #30 tablet 06/05/17 [Last Taken Unknown] oxyCODONE IR [Oxycodone Ir (*)] 5 - 10 mg PO Q4 PRN #20 tab 06/05/17 [Last Taken Unknown] Discharge Medications: Refer to the Discharge Home Medication list for PRN reason. - Orders Services needed: Home Care, Registered Nurse, Physical Therapy, Occupational Therapy Home Care Face to Face: I certify that this patient was under my care and that I had the required [id number] encounter meeting the encounter requirements on the discharge day. My findings support the fact that the patient is homebound as defined in Home Care Face to Face Continued: CMS Chapter 7 Medicare Benefits Manual 30.1.1 , The condition of the patient is such that there exists a normal inability to leave home and consequently, leaving home would require a considerable and taxing effort. Oxygen: 2L Diet Recommendation: sodium restricted, other (coumadin diet) Weigh Patient: daily Additional: Home safety eval - Follow Up Care Current Providers and Referrals: Wanda Suero MD [Primary Care Provider] - As per Instructions
--- NOTE | 2017-06-05 09:58 | PDHOMEO2F ---
Home Oxygen Face to Face Home Orders: I certify that a physician or a nurse practitioner or physician's social science research assistant has had a [id number] encounter with this patient on the date of this order due to the diagnosis listed, which relates to the primary reason the patient requires home oxygen. Alternative treatments have been tried, or considered, and deemed ineffective. It is anticipated that supplemental oxygen will result in improvement with treatment. Home oxygen qualifying diagnosis: obesity hypventilation syndrome, severe pulmonary HTN SpO2 on room air (%): 83 Frequency of home oxygen needed: continuous Home oxygen liters per minute: 2 Home oxygen delivery device: nasal cannula Concentrator: Yes E-tanks for mobility and back up: Yes If ordering portable O2, is the patient mobile in the home?: Yes I certify that, based on these findings, the home oxygen is medically necessary for this patient for the following length of time. Length of time home oxygen needed: 99 years
--- NOTE | 2017-06-05 11:18 | GDS ---
[f rep st] DISCHARGE SUMMARY DIAGNOSES: 1. Severe pulmonary hypertension. 2. Obesity hypoventilation syndrome. 3. Probable obstructive sleep apnea. 4. Radial artery thrombosis, iatrogenic from heart catheterization. 5. Protein C deficiency with hypercoagulable state. 6. Morbid obesity. BMI 54. 7. Asthma. HISTORY: The patient is a 47-year-old female, who was recently worked up as an outpatient for severe pulmonary hypertension, had a right and left heart catheterization by Dr. Curtis. The left heart cath was negative without coronary artery disease. Right heart cath showed severe pulmonary hyperten lawrence. She has a known protein C deficiency, however, had never previously had a clot and so therefor e was not on chronic anticoagulation. She presented to the hospital with an acute radial artery thro mbosis status post cardiac catheterization. She was seen here in consultation with vascular surgery and interventional radiology. Her brachial and ulnar arteries are patent, and she had good perfusion of the hand so no intervention was thought to be necessary. She is now being anticoagulated on subc utaneous Lovenox with a transition to warfarin with a goal INR of 2-3. Given her protein-C deficienc y, would consider lifelong anticoagulation, especially given this arterial thrombosis. She should fo llow up with Hematology as an outpatient. INRs will be monitored through the Coumadin Clinic with jean-paul cueva appointment scheduled 2 days from now. She has a friend in town from [place] who feels comforta ble administering the Lovenox. Regarding her pulmonary hypertension, it is quite severe with her pulmonary pressures 80 to 90. She has a more she has morbid obesity with a BMI of 54. CT angiogram of the chest is negative for PE. S he clearly has obesity hypoventilation syndrome. She will need an ABG to confirm, however, we have n ot done it during this hospitalization given her acute radial artery thrombosis. She has a sleep marium dy scheduled for this upcoming . She is already on torsemide and spironolactone for diuretic s. Dr. Ivey saw her here in consultation. She has outpatient followup scheduled with Dr. Fishman in a few weeks. She is noted to be hypoxic throughout this hospitalization, 83% on room air, with extre me desaturations and tachycardia with any activity. She will be set up for home oxygen which I antic ipate she will need long-term. She was counseled at length regarding her need for weight loss. DISCHARGE MEDICATIONS: Please see computer record for full detailed list. New medications: 1. Lovenox 140 mg subcu twice daily, to continue until INR is greater than 2. 2. Oxycodone 5-10 mg p.o. q.4 hours as needed for right hand pain. Twenty tablets dispensed. 3. Warfarin 5 mg p.o. daily. She will take 7.5 mg p.o. today. Discontinued medications: Aspirin 325 mg p.o. daily. ADDITIONAL DISCHARGE INSTRUCTIONS: 1. Follow up Coumadin Clinic in 2 days. 2. Home oxygen 23/10. 3. Pulmonary rehabilitation. 4. Recommend moving to a ground level apartment rather than 2nd floor walk up. 5. Home health, PT, OT, VNS. 6. Weight loss advised and counseled. 7. Follow up with sleep study in 2 days as already scheduled. 8. Follow up with Dr. Fishman of Pulmonary Medicine as already scheduled. Greater than 30 minutes' time spent arranging this discharge. Patient seen and examined by me on day of discharge. /[id number]/MODL
[2017-06-05 14:38] VITALS: PULSE 100; O2SAT 89
--- NOTE | 2017-06-05 15:22 | SOAPPROG ---
SOAP Progress Note Assessment/Plan: Assessment: Severe pulmonary hypertension. Pulmonary artery pressures on right heart catheterization on 05/28 were 86. Likely secondary to obesity, hypoxemia, sleep apnea. No evidence of thromboembolic disease although she is anticoagulated for an arterial clot at this time. Does have a history of protein C deficiency. Hypoxemia. On oxygen now at night as well as during the day. At rest her oxygen saturations are borderline: 88-91 range. Morbid obesity, with probable obesity/hypoventilation syndrome. Arterial blood gas not drawn on this admission secondary to right radial artery clot. Probable obstructive sleep apnea. For formal sleep study in 2 days as an outpatient. Right radial artery thrombosis. On anticoagulation. This was related to her right radial artery approach for her left heart catheterization recently. History of protein C deficiency Plan: Discharge today on oxygen and diuretics. She has an outpatient appointment with Jama Fishman MD in our office in 6 days. Await sleep study on , although results probably not back for several weeks. Continue anticoagulation. Weight loss needs to be seriously addressed some point. Bariatric surgery could be an option. Discussed briefly with the patient.. Subjective: Feels better. Anxious to go home. Objective: Vital Signs Temp Pulse Resp BP Pulse Ox 36.9 C 100 14 109/73 89 L 06/05/17 09:52 06/05/17 10:04 06/05/17 09:52 06/05/17 09:52 06/05/17 10:04 Laboratory Results 06/04/17 04:06 06/05/17 04:05 06/04/17 06/05/17 06/06/17 05:59 05:59 05:59 Intake Total 200 1280 Output Total 800 1850 200 Balance -600 -570 -200 PT 16.2 SEC (12.0-15.0) H 06/05/17 04:05 INR 1.28 (0.83-1.16) H 06/05/17 04:05 Physical Exam - Physical Exam General Appearance: alert, no apparent distress, obese EENT: PERRL/EOMI, other (Nasal cannula in place at 2 L) Neck: normal inspection Respiratory: lungs clear (Anteriorly), decreased breath sounds (At bases secondary to body habitus), No rales, No rhonchi, No wheezing Cardiac/Chest: regular rate, rhythm Abdomen: normal bowel sounds, non-tender, soft (Morbidly obese) Skin: normal color, warm/dry Extremities: pedal edema (Trace +to 1+) Neuro/Psych: no motor/sensory deficits, No cognition abnormalities ICD10 Worksheet Patient Problems: Problems Problem Status Onset Pulmonary hypertension Acute Right radial artery thrombus Acute
--- NOTE | 2017-06-06 09:30 | ASDISCHSUM ---
Discharge Information Plan Status:Home with Home Health Medically Cleared to Leave: Discharge Date:06/05/2017 12:43 PM CM D/C Disposition:Home Health Service ADT D/C Disposition:Home Health Service Projected Discharge Date:06/04/2017 11:00 AM Transportation at D/C: Discharge Delay Reason: Follow-Up Date:06/04/2017 11:00 AM Discharge Slot: Final Diagnosis:Radial artery clot Placement Information Referral Type:*Home Health Care Services Referral ID:[id number] Provider Name:[facility] Address 1:[address] [place] [address] Address 2: City:[place] Selection Factors: State:[place] Patient Contact Information Contact Name:HERNAN Relationship:Son Address:[address] City:[place] Alternate Phone: State/Zip Code:[place] [address] Email: Financial Information Financial Class:HMO and PPO Plans Primary Plan Desc: OUT OF STATE PPO Primary Plan Number:[id number] Secondary Plan Desc: Secondary Plan Number: Assessment Information [facility] CM Progress Note CM Note CM Note Notes: Pt has been admitted with a radial artery clot 05/04 a heart cath done on 05/28. She is currently on heparin and no surgery is planned. She has a hx of pulmonary HTN and asthma. She has a son Dimitrios. Anticipate pt will d/c with no CM needs but will continue to follow for any change in d/c needs. Date Signed: 06/02/2017 02:40 PM Electronically Signed By:CARO Nayak [facility] CM Progress Note CM Note CM Note Notes: [facility] contacted about need for Lovenox inj 2x/day. [facility] does contract w/BC they could go out 2x/day for a limited time (3days) but patient wouldn't get the inj 12 hrs apart. Maybe 9am and again at 6pm? Date Signed: 06/03/2017 02:34 PM Electronically Signed By:Milka Friend LCSW [facility] Progress Note CM Note CM Note Notes: Clarification w/[facility] HHC if needed; spoke w/Jennifer today who said that they could do SQ Lovenox q12 hrs if needed (they would do 8AM and 8PM). Met w/pt and friend, Jv, who is here from out of state visiting and helping pt until Sunday. She is comfortable learning how to give SQ injections and may be difficult for pt to be homebound as they will be looking for new apt b/c her current apt is 2nd floor w/no elevator and is very difficult to manage at this time w/her current cardiopulmonary issues. They will let us know if they decide to have some initial at home teaching w/[facility] but at this time do not feel they will need it. Interested in shower seat; patrick closet and [employer] list given. CM will follow. Date Signed: 06/04/2017 02:34 PM Electronically Signed By:Moraima Ibrahim RN Case Management Discharge Plan Note Case Management Discharge Discharge Order Complete? Answers: Yes Patient to Obtain Answers: Independently Medications Transportation Arranged Answers: Family/Friends Faxed Final Orders Answers: Yes Discharge Comments Notes: Patient discharged to home. [facility] will see for RN/PT/OT. I wrote a letter to patient's landlord requesting a first floor apartment. Dr Grace signed. Patient has an outpatient sleep study scheduled for 06/07. Her friend Jv weeks accompany her home and spend a few days getting her settled. Date Signed: 06/05/2017 11:53 AM Electronically Signed By:Zenia Fernando RN Intervention Information
== END 2017-06-05 12:43 | disposition home health service (06) | DRG 300 ==
LOC: F2W 21:20 → OBSVTOIN 06-02 09:17
PROVIDERS: ADMIT Internal Medicine; ATTEND Internal Medicine
DX: I74.2 Embolism and thrombosis of arteries of the upper extremities (principal); E66.2 Morbid (severe) obesity with alveolar hypoventilation; D68.59 Other primary thrombophilia; Z68.43 Body mass index [BMI] 50.0-59.9, adult; I27.20 Pulmonary hypertension, unspecified; J45.909 Unspecified asthma, uncomplicated
CPT/HCPCS: 85520-90; 96365; 96366; 97116-GP; 97161-GP; 97165-GO; 97530-GO; 97535-GO; G0378; J0153; J1170; J1644; J1650; J1885; J2270; Q9967

== ENCOUNTER → 2017-06-07 | Outpatient (CLI) | payer BC | LOC: SBRMNEURO 21:00 | PROVIDERS: ATTEND Student in an Organized Health Care Education/Training Program | DX: G47.33 Obstructive sleep apnea (adult) (pediatric) (principal); R09.02 Hypoxemia ==

== ENCOUNTER → 2017-07-02 | Outpatient (CLI) | payer BC | LOC: FIMAGING 12:58 | PROVIDERS: ATTEND Internal Medicine Critical Care Medicine | DX: I51.7 Cardiomegaly (principal); J45.909 Unspecified asthma, uncomplicated | CPT/HCPCS: 71046; 78598; A9540; A9558 ==

== ENCOUNTER → 2017-08-22 | Outpatient (CLI) | payer BC | LOC: FIMAGING 14:22 | PROVIDERS: ATTEND Internal Medicine Cardiovascular Disease | DX: I74.2 Embolism and thrombosis of arteries of the upper extremities (principal) ==

== ENCOUNTER → 2017-11-21 | Outpatient (CLI) | payer BC | LOC: SBRMNEURO 20:00 | PROVIDERS: ATTEND Student in an Organized Health Care Education/Training Program | DX: G47.33 Obstructive sleep apnea (adult) (pediatric) (principal) ==

== ENCOUNTER → 2018-02-26 | Outpatient (CLI) | payer BC | LOC: BMCIMAGING 16:43 | PROVIDERS: ATTEND Internal Medicine | DX: J98.09 Other diseases of bronchus, not elsewhere classified (principal); I51.7 Cardiomegaly ==

== ENCOUNTER → 2018-07-17 | Outpatient (CLI) | payer BC | LOC: FIMAGING 07:55 | PROVIDERS: ATTEND Internal Medicine Cardiovascular Disease | DX: I27.20 Pulmonary hypertension, unspecified (principal); I28.1 Aneurysm of pulmonary artery; E66.9 Obesity, unspecified | CPT/HCPCS: Q9967 ==